=== PATIENT | female | born 2000 | race Caucasian/White ===

== ENCOUNTER 2019-11-23 05:27 | Inpatient (IN) | payer OTHER ==
--- NOTE | 2019-11-24 12:47 | PR ---
[facility] [address] [facility] [place] [address] Signed PP Progress Notes Datetime Report Generated by GRACE: 11/24/2019 12:47 SUBJECTIVE: [id number] Pain: Within Normal Limits Vital Signs: [id number] Vital Signs: Reviewed; Within Normal Limits Cardiovascular: Not Done Respiratory: Not Done Abdomen/Uterus: Abnormal Lochia: Normal Vulva/Perineum: Not Done Breasts: Not Done CVA Tenderness: Not Done Extremities: Normal Incision: Not Applicable Progress: Not Applicable Exam Comments: Fundus firm, NT @ U-1. H/H 11/32.7, WBC 13.1, plat 165k IMPRESSION/PLAN/PROCEDURES: [id number] Impression: Normal Progression Plan: Discharge Procedures: None Progress Notes: Doing well. they desire discharge. Signing Physician: Carlos Artis MD Copies: ~ *Electronically Signed* 11/24/19 1247 CARLSO ARTIS MD PATIENT NAME: ADRIEL BENITEZ PROGRESS NOTE DATE OF : 99 PHYSICIAN: CARLOS ARTIS MD RPT #: [id number] REPORT IS CONFIDENTIAL AND NOT TO BE RELEASED WITHOUT AUTHORIZATION
== END 2019-11-24 12:50 | disposition home or self-care (01) | DRG 807 ==
LOC: FBCO 05:27 → FBC 05:50
PROVIDERS: ADMIT Obstetrics & Gynecology
PROC: 10E0XZZ Delivery of Products of Conception, External Approach (ICD-10-PCS; principal; 2019-11-23)
DX: O62.3 Precipitate labor (principal); Z37.0 Single live birth; O66.0 Obstructed labor due to shoulder dystocia; Z3A.39 39 weeks gestation of pregnancy
CPT/HCPCS: 36415; 85027; A9270

== ENCOUNTER 2020-06-24 04:12 | Emergency (ER) | payer OTHER ==
[~2020-06-24] VITALS: Ht 157.5 cm; Wt 54.4 kg
[2020-06-24] MEDS ORDERED: K-TAB ER20 MEQ PO (05:21)
[2020-06-24] MEDS ORDERED: OMEPRAZOLE20 MG PO (05:21)
== END 2020-06-24 05:30 | disposition home or self-care (01) ==
LOC: ED 04:12
DX: R10.12 Left upper quadrant pain (principal); F17.200 Nicotine dependence, unspecified, uncomplicated
CPT/HCPCS: 80053; 81001; 83690; 84703; 85025; 99284